=== PATIENT | male | born 1985 | race Caucasian/White ===

== ENCOUNTER 2017-07-07 10:21 | Emergency (ER) | payer SELFPAY ==
--- NOTE | 2017-07-07 10:58 | UC ---
Bite Injury/Animal HPI - HPI Summary HPI Summary: 31 year old male presents with rash on his right thigh, left swollen big toe, head ache and fever. - History of Current Complaint Stated Complaint: TICK BITE, RASH Time Seen by Provider: 07/07/17 10:57 Hx Obtained From: Patient Severity Currently: Severe Severity Initially: Severe Pain Scale Used: 0-10 Numeric - 8 Onset/Duration: Sudden Onset Type of Bite: Animal - tick - Allergies/Home Medications Allergies/Adverse Reactions: Allergies Allergy/AdvReac Type Severity Reaction Status Date / Time CATS Allergy sneezing,runny Uncoded 07/07/17 10:53 nose, watery, puffy eyes ENVIRONMENTAL/SEASONAL Allergy Sneezing, Uncoded 07/07/17 10:53 HAYFEVER RUNNY NOSE,EYES,PUFFY WATERY PMH/Surg Hx/FS Hx/Imm Hx Previously Healthy: Yes - Surgical History Surgical History: Yes Surgery Procedure, Year, and Place: RIGHT HAND NERVE REPAIR 2011, 2012 [facility] [place] Piutedylan Cole - Family History Known Family History: Positive: None - Social History Alcohol Use: Rare Substance Use Type: None Smoking Status (MU): Current Some Day Smoker Type: Cigarettes Amount Used/How Often: 4 CIGS PER WEEK Have You Smoked in the Last Year: Yes Review of Systems Constitutional: Negative Skin: Rash Eyes: Negative ENT: Negative Respiratory: Negative Cardiovascular: Negative Gastrointestinal: Negative Genitourinary: Negative Motor: Negative Neurovascular: Negative Musculoskeletal: Other: - left big toe swelling/pain Neurological: Negative Psychological: Negative All Other Systems Reviewed And Are Negative: Yes Physical Exam Triage Information Reviewed: Yes Appearance: Ill-Appearing Eye Exam: Normal ENT Exam: Normal Dental Exam: Normal Neck exam: Normal Neck: Positive: 1 Respiratory Exam: Normal Cardiovascular Exam: Normal Abdominal Exam: Normal Musculoskeletal Exam: Normal Musculoskeletal: Positive: Other: - left big toe swelling/pain Neurological Exam: Normal Psychological Exam: Normal Skin: Positive: rashes Bite Injury Course/Dx - Differential Dx/Diagnosis Provider Diagnoses: rash. left big toe swelling Discharge - Discharge Plan Condition: Stable Disposition: HOME Prescriptions: DOXYcycline CAP(*) [DOXYcycline 100MG CAP(*)] 100 mg PO BID #56 cap Patient Education Materials: Lyme Disease (ED), Tick Bite (ED) Referrals: Corrie Reinoso PA [Primary Care Provider] - If Needed
[2017-07-07 10:59] VITALS: BP 142/74
[2017-07-09 18:04] LABS: Lyme Disease IgG Ab WB Negative (Negative)
--- NOTE | 2017-07-10 07:17 | UC ---
Progress - Progress Note Progress Note: Please call patient to let them know that lyme titers is c/w early infection with lyme. pt is on 28 days of doxycycline. Pt should be re tested in 4-6 weeks to double check lyme titers as this test here suggests early infection but confirmation is needed.
== END 2017-07-07 11:24 | disposition home or self-care (01) ==
LOC: UCCORT 10:21
DX: R21 Rash and other nonspecific skin eruption (principal); M79.89 Other specified soft tissue disorders; R51 Headache; R50.9 Fever, unspecified; Z72.0 Tobacco use
CPT/HCPCS: 86617; 86618; 99212; G0463

== ENCOUNTER 2017-08-02 08:01 | Emergency (ER) | payer OTHER ==
[2017-08-02 08:11] VITALS: BP 138/85
--- NOTE | 2017-08-02 08:57 | UC ---
Knee Pain HPI - HPI Summary HPI Summary: 31 yo male with a 2 day hx of bilateral knee pain no injury he is three days shy of finishing a 3 week coarse of doxy for Lyme disease - History of Current Complaint Chief Complaint: UCLowerExtremity Stated Complaint: FOOT, KNEE PAIN Time Seen by Provider: 08/02/17 08:24 Hx Obtained From: Patient Onset/Duration: Gradual Onset, Lasting Days Severity Initially: Moderate Severity Currently: Moderate Pain Intensity: 4 Pain Scale Used: 0-10 Numeric Aggravating Factor(s): Movement, Weight Bearing Alleviating Factor(s): Rest Associated Signs And Symptoms: Positive: Negative Able to Bear Weight: Yes - Allergies/Home Medications Allergies/Adverse Reactions: Allergies Allergy/AdvReac Type Severity Reaction Status Date / Time CATS Allergy sneezing,runny Uncoded 08/02/17 08:11 nose, watery, puffy eyes ENVIRONMENTAL/SEASONAL Allergy Sneezing, Uncoded 08/02/17 08:11 HAYFEVER RUNNY NOSE,EYES,PUFFY WATERY PMH/Surg Hx/FS Hx/Imm Hx Previously Healthy: Yes - Lyme disease - Surgical History Surgical History: Yes Surgery Procedure, Year, and Place: RIGHT HAND NERVE REPAIR 2011, 2012 [facility] [place]y Cole - Family History Known Family History: Positive: Diabetes Negative: Cardiac Disease, Hypertension - Social History Alcohol Use: Occasionally Substance Use Type: None Smoking Status (MU): Heavy Every Day Tobacco Smoker Type: Cigarettes Amount Used/How Often: 1/2ppd Have You Smoked in the Last Year: Yes - Immunization History Most Recent Influenza Vaccination: no Review of Systems Constitutional: Negative Skin: Negative Eyes: Negative ENT: Negative Respiratory: Negative Cardiovascular: Negative Gastrointestinal: Negative Genitourinary: Negative Motor: Negative Neurovascular: Negative Musculoskeletal: Arthralgia Neurological: Negative Psychological: Negative All Other Systems Reviewed And Are Negative: Yes Physical Exam Triage Information Reviewed: Yes Appearance: Well-Appearing, No Pain Distress, Well-Nourished Vital Signs: Initial Vital Signs Temp 98.6 F 08/02/17 08:06 Pulse 80 08/02/17 08:06 Resp 16 08/02/17 08:06 BP 138/85 08/02/17 08:06 Pulse Ox 99 08/02/17 08:06 Eyes: Positive: Conjunctiva Clear ENT: Positive: Hearing grossly normal. Negative: Nasal congestion, Nasal drainage, Trismus, Muffled/hoarse voice Neck: Positive: Supple, Nontender, No Lymphadenopathy Respiratory: Positive: Lungs clear, Normal breath sounds, No respiratory distress, No accessory muscle use Cardiovascular: Positive: RRR, No Murmur Musculoskeletal: Positive: Strength Intact Neurological Exam: Normal Neurological: Positive: Alert Psychological Exam: Normal Skin Exam: Normal Knee Pain Course/Dx - Differential Dx/Diagnosis Provider Diagnoses: bilateral knee pain of uncertain cause Discharge - Discharge Plan Condition: Stable Disposition: HOME Prescriptions: Cefuroxime Axetil [Ceftin 250 MG] 250 mg PO BID #6 tab Patient Education Materials: Arthralgia (ED) Referrals: Corrie Reinoso PA [Primary Care Provider] - Additional Instructions: in case this is due to a reaction to doxy I suggest you stop it ceftin 250mg twice daily x 3 days if your joint pain doesn't improve by next week please get rechecked if you develop joint swelling/redness or fever get rechecked See ID doc later this month as planned
== END 2017-08-02 09:01 | disposition home or self-care (01) ==
LOC: UCCORT 08:01
DX: M25.562 Pain in left knee (principal); M25.561 Pain in right knee; Z79.2 Long term (current) use of antibiotics; A69.20 Lyme disease, unspecified; Z72.0 Tobacco use
CPT/HCPCS: 81003; 99212; G0463

== ENCOUNTER 2018-03-11 12:36 | Emergency (ER) | payer OTHER ==
[2018-03-11 13:53] VITALS: BP 157/95
--- NOTE | 2018-03-11 14:39 | UC ---
Abdominal Pain Male HPI - HPI Summary HPI Summary: 32 yo male has had intermittent lower abd pain and diarrhea x 1-1 1/2 mos averages about three episodes of diarrhea a day 2 weeks ago he states he thinks he saw a worm in his diarrhea past 1-2 days fever and chills anorexia nausea but no vomiting no dysuria no back pain no travel has 2 dogs at home had felt like something is "slipping in and out" of his anus no blood in stool now abd feels bloated - History of Current Complaint Chief Complaint: UCGU Stated Complaint: NAUSEA/STOMCH ACHE Time Seen by Provider: 03/11/18 14:22 Onset/Duration: Gradual Onset, Lasting Weeks Severity Initially: Mild Severity Currently: Moderate Pain Intensity: 2 - occassionally higher Pain Scale Used: 0-10 Numeric Location: Diffuse Character: Cramping Aggravating Factor(s): Nothing Associated Signs And Symptoms: Positive: Fever - since yesterday, Dizzy, Decreased Appetite - anorexic, Nausea, Diarrhea - around 3x day for weeks - Allergies/Home Medications Allergies/Adverse Reactions: Allergies Allergy/AdvReac Type Severity Reaction Status Date / Time CATS Allergy sneezing,runny Uncoded 03/11/18 13:45 nose, watery, puffy eyes ENVIRONMENTAL/SEASONAL Allergy Sneezing, Uncoded 03/11/18 13:45 HAYFEVER RUNNY NOSE,EYES,PUFFY WATERY Home Medications: Home Medications Albuterol HFA INHALER* [Ventolin HFA Inhaler*] 2 puff INH Q4HR PRN 03/11/18 [ History Confirmed 03/11/18] PMH/Surg Hx/FS Hx/Imm Hx Previously Healthy: Yes - Surgical History Surgical History: Yes Surgery Procedure, Year, and Place: RIGHT HAND NERVE REPAIR 2011, [place] [facility] [place]. Villanue[place] - Family History Known Family History: Positive: Diabetes Negative: Cardiac Disease, Hypertension - Social History Alcohol Use: None Substance Use Type: None Smoking Status (MU): Heavy Every Day Tobacco Smoker Type: Cigarettes Amount Used/How Often: 1/2ppd Have You Smoked in the Last Year: Yes - Immunization History Most Recent Influenza Vaccination: no Review of Systems Constitutional: Fever, Chills Skin: Negative Eyes: Negative ENT: Negative Respiratory: Negative Cardiovascular: Negative Gastrointestinal: Abdominal Pain, Diarrhea, Nausea Genitourinary: Negative Motor: Negative Neurovascular: Negative Musculoskeletal: Negative Neurological: Negative Psychological: Negative Is Patient Immunocompromised?: No All Other Systems Reviewed And Are Negative: Yes Physical Exam Triage Information Reviewed: Yes Appearance: Well-Appearing, No Pain Distress, Well-Nourished Vital Signs: Initial Vital Signs Temp 98.6 F 03/11/18 13:47 Pulse 86 03/11/18 13:47 Resp 18 03/11/18 13:47 BP 157/95 03/11/18 13:47 Pulse Ox 98 03/11/18 13:47 Vital Signs Reviewed: Yes Eyes: Positive: Conjunctiva Clear ENT: Positive: Hearing grossly normal, Pharyngeal erythema. Negative: Nasal congestion, Nasal drainage, Trismus, Muffled voice, Hoarse voice, Uvula midline Neck: Positive: Supple, Nontender, No Lymphadenopathy Respiratory: Positive: Lungs clear, Normal breath sounds, No respiratory distress, No accessory muscle use Cardiovascular: Positive: RRR, No Murmur Abdomen Description: Positive: No Organomegaly, Soft, Other: - most tender RLQ. Negative: Nontender, CVA Tenderness (R), CVA Tenderness (L), Distended, Guarding Bowel Sounds: Positive: Hyperactive Musculoskeletal: Positive: ROM Intact, No Edema Neurological: Positive: Alert Psychological Exam: Normal Skin Exam: Normal Abd Pain Male Course/Dx - Course Course Of Treatment: Due to current RLQ pain fever/anorexia/nausea I suggested he get seen in an ER for further investigation. Advised of wide differential for his current symptoms. - Differential Dx/Clinical Impression Provider Diagnoses: abdominal pain/fever/diarrhea of uncertain cause Discharge - Sign-Out/Discharge Documenting (check all that apply): Discharge - Discharge Plan Condition: Stable Disposition: HOME Referrals: Corrie Reinoso PA [Primary Care Provider] - Additional Instructions: As discussed I think you should go to the [facility] [place] for further investigation of you symptoms Because you are most tender in you RLQ abdomen and have fever and nausea/ anorexia I think you need to seen where you can have a higher level of care than we can offer. - Billing Disposition and Condition Condition: STABLE Disposition: HOME
== END 2018-03-11 14:46 | disposition home or self-care (01) ==
LOC: UCCORT 12:36
DX: R10.31 Right lower quadrant pain (principal); R50.9 Fever, unspecified; R63.0 Anorexia; R11.0 Nausea; R19.7 Diarrhea, unspecified; F17.210 Nicotine dependence, cigarettes, uncomplicated; Z91.09 Other allergy status, other than to drugs and biological substances
CPT/HCPCS: 99212; G0463

== ENCOUNTER 2018-03-11 15:28 | Emergency (ER) | payer OTHER ==
[2018-03-11 17:18] LABS: Hematocrit 49 % (42-52); Hemoglobin 17.8 g/dl (14.0-18.0); Mean Corpuscular HGB Conc 37 g/dl (31-36); Mean Corpuscular Hemoglobin 33 pg (27-31); Mean Corpuscular Volume 89 fL (80-94); Red Blood Count 5.45 10^6/ul (4.0-5.4); Red Cell Distribution Width 12 % (10.5-15); White Blood Count 10.2 10^3/ul (3.5-10.8)
[2018-03-11] MEDS ORDERED: NS 0.9% 1000 ML* 1,000 ML IV ONE (17:33)
[2018-03-11 17:38] LABS: EGFR Non-African American 84.6 (>60)
[2018-03-11] MEDS ORDERED: Iohexol 300* (CONTRAST) 10 ML SDV IV ONE (18:04)
[2018-03-11 18:11] LABS: ABS Basophils 0 10^3/ul (0-0.2); ABS Eosinophils 0.1 10^3/ul (0-0.6); ABS Lymphocytes 2.3 10^3/ul (1.0-4.8); ABS Monocytes 0.8 10^3/ul (0-0.8); ABS Neutrophils 7.1 10^3/ul (1.5-7.7); ABS Nucleated RBC 0.5 10^3/ul; Eosinophil % 0.5 % (0-6); Lymphocyte % 22.2 % (25-47); Mean Platelet Volume 8.6 um3 (7.4-10.4); Nucleated Red Blood Cells % 4.3; Platelet Count 238 10^3/ul (150-450)
--- NOTE | 2018-03-11 18:53 | ED ---
Abdominal Pain/Male - HPI Summary HPI Summary: C/O RUQ AND SUPRAPUBIC PAIN, NAUSEA, DIARRHEAS X 1 MONTH, "SOMETHING COMING IN AND OUT OF RECTUM" X 12 EPISODES, WITH FEVER, DEC APPETITE, IN LAST FEW DAYS. RUQ PAIN DESCRIBED INTERMITTENT, SHARTP, SOMETIMES ASSOCIATED WITH MEALS, LASTING UP TO 30 MINS. SUPRAPUBIC PAIN DESCRIBED OCCURRING EVERY MORNING. DENIES VOMITING, URINARY SX, PENILE D/C, TESTICLE PAIN OR SWELLING, HX OF HEMORRHOIDS, COUGH, SORE THROAT, CP, SOB,. MED HX = ASTHMA, GERD. AB/PEL SURGICAL HX = NONE. - History of Current Complaint Chief Complaint: EDAbdPain Stated Complaint: ABD PAIN Time Seen by Provider: 03/11/18 17:17 Hx Obtained From: Patient Onset/Duration: Gradual Onset, Lasting Weeks Timing: Intermittent, Lasting Minutes Severity Initially: Moderate Severity Currently: Moderate Pain Intensity: 4 Pain Scale Used: 0-10 Numeric Location: Discrete At: RUQ, Suprapubic Radiates: No Character: Sharp Aggravating Factor(s): Food Alleviating Factor(s): Nothing Associated Signs And Symptoms: Positive: Fever, Decreased Appetite, Nausea, Diarrhea. Negative: Blood in Stool, Urinary Symptoms, Vomiting, Penile Discharge - Risk Factors Testicular Torsion: Negative Cardiac Risk Factors: Negative - Allergies/Home Medications Allergies/Adverse Reactions: Allergies Allergy/AdvReac Type Severity Reaction Status Date / Time CATS Allergy sneezing,runny Uncoded 03/11/18 13:45 nose, watery, puffy eyes ENVIRONMENTAL/SEASONAL Allergy Sneezing, Uncoded 03/11/18 13:45 HAYFEVER RUNNY NOSE,EYES,PUFFY WATERY Home Medications: Home Medications Ashwagandha 1 cap PO DAILY 03/11/18 [History Confirmed 03/11/18] PMH/Surg Hx/FS Hx/Imm Hx Previously Healthy: Yes Endocrine/Hematology History: Denies: Hx Diabetes Cardiovascular History: Denies: Hx Hypertension Respiratory History: Reports: Hx Asthma GI History: Reports: Hx Gastroesophageal Reflux Disease - OK ON DAILY MED, Other GI Disorders - CURRENT PAIN ISSUE History: Denies: Hx Acute Renal Failure, Hx Benign Prostatic Hyperplasia, Hx Chronic Renal Failure, Hx Dialysis, Hx Kidney Infection, Hx Kidney Stones, Hx Renal Disease, Other Problems/Disorders Musculoskeletal History: Denies: Hx Arthritis, Hx Rheumatoid Arthritis, Hx Back Problems, Hx Bursitis , Hx Congenital Bone Abnormalities, Hx Fibromyalgia, Hx Gout, Hx Orthopedic Injury, Hx Osteoporosis, Hx Scoliosis, Hx Tendonitis, Hx of Fracture(s), Hx Joint Replacement, Other Musculoskeletal History Sensory History: Denies: Hx Contacts or Glasses, Hx Hearing Aid Opthamlomology History: Denies: Hx Contacts or Glasses - Surgical History Surgery Procedure, Year, and Place: RIGHT HAND NERVE REPAIR 2011, 2012 [facility] [place] Dr. Villanueva Hx Anesthesia Reactions: No Infectious Disease History: No Infectious Disease History: Reports: History Other Infectious Disease - lyme Denies: Traveled Outside the [place] in Last 30 Days - Family History Known Family History: Positive: Diabetes Negative: Cardiac Disease, Hypertension - Social History Alcohol Use: None Substance Use Type: Reports: None Smoking Status (MU): Heavy Every Day Tobacco Smoker Type: Cigarettes Amount Used/How Often: 1/2ppd Have You Smoked in the Last Year: Yes Review of Systems Positive: Fever, Chills Eyes: Negative ENT: Negative Cardiovascular: Negative Respiratory: Negative Positive: Abdominal Pain, Diarrhea, Nausea Genitourinary: Negative Musculoskeletal: Negative Skin: Negative Neurological: Negative Psychological: Normal All Other Systems Reviewed And Are Negative: Yes Physical Exam Triage Information Reviewed: Yes Vital Signs On Initial Exam: Initial Vitals Temp Pulse Resp BP Pulse Ox 97.7 F 92 18 162/88 99 03/11/18 15:29 03/11/18 15:29 03/11/18 15:29 03/11/18 15:29 03/11/18 15:29 Vital Signs Reviewed: Yes Appearance: Positive: Well-Appearing Skin: Positive: Warm Head/Face: Positive: Normal Head/Face Inspection Eyes: Positive: Normal ENT: Positive: Normal ENT inspection Neck: Positive: Supple Respiratory/Lung Sounds: Positive: Clear to Auscultation Cardiovascular: Positive: Normal Abdomen Description: Positive: Soft, McBurney's Point Tenderness, Other: - heme neg. NEG FOR HEMORRHOIDS OR MASS ON KIYA. RLQ TENDERNESS ON EXAM. NEG MURPHYS.. Negative: Nontender, Distended, Guarding, Peritoneal Signs Bowel Sounds: Positive: Present Musculoskeletal: Positive: Normal Neurological: Positive: Normal Psychiatric: Positive: Normal AVPU Assessment: Alert - Shamika Coma Scale Best Eye Response: 4 - Spontaneous Best Motor Response: 6 - Obeys Commands Best Verbal Response: 5 - Oriented Coma Scale Total: 15 Diagnostics - Vital Signs Vital Signs Temp Pulse Resp BP Pulse Ox 03/11/18 17:25 80 14 179/101 97 03/11/18 17:22 7 03/11/18 16:49 98.9 F 80 20 153/67 98 03/11/18 15:29 97.7 F 92 18 162/88 99 - Laboratory Lab Results: Lab Results 03/11/18 03/11/18 03/11/18 Range/Units 17:05 17:05 17:05 WBC 10.2 (3.5-10.8) 10^3/ul RBC 5.45 H (4.0-5.4) 10^6/ul Hgb 17.8 (14.0-18.0) g/dl Hct 49 (42-52) % MCV 89 (80-94) fL MCH 33 H (27-31) pg MCHC 37 H (31-36) g/dl RDW 12 (10.5-15) % Plt Count 238 (150-450) 10^3/ul MPV 8.6 (7.4-10.4) um3 Neut % (Auto) 69.2 (38-83) % Lymph % (Auto) 22.2 L (25-47) % [place] % (Auto) 7.7 H (0-7) % Eos % (Auto) 0.5 (0-6) % Baso % (Auto) 0.4 (0-2) % Absolute Neuts (auto) 7.1 (1.5-7.7) 10^3/ul Absolute Lymphs (auto) 2.3 (1.0-4.8) 10^3/ul Absolute Monos (auto) 0.8 (0-0.8) 10^3/ul Absolute Eos (auto) 0.1 (0-0.6) 10^3/ul Absolute Basos (auto) 0 (0-0.2) 10^3/ul Absolute Nucleated RBC 0.5 10^3/ul Nucleated RBC % 4.3 Giant Platelets Present Sodium 138 L (139-145) mmol/L Potassium 3.9 (3.5-5.0) mmol/L Chloride 105 (101-111) mmol/L Carbon Dioxide 24 (22-32) mmol/L Anion Gap 9 (2-11) mmol/L BUN 11 (6-24) mg/dL Creatinine 1.02 (0.67-1.17) mg/dL Est GFR ( Amer) 108.9 (>60) Est GFR (Non-Af Amer) 84.6 (>60) BUN/Creatinine Ratio 10.8 (8-20) Glucose 101 H (70-100) mg/dL Lactic Acid 0.6 (0.5-2.0) mmol/L Calcium 9.5 (8.6-10.3) mg/dL Total Bilirubin 1.50 H (0.2-1.0) mg/dL AST 40 H (13-39) U/L ALT 49 (7-52) U/L Alkaline Phosphatase 77 (34-104) U/L C-Reactive Protein < 1.00 (< 5.00) mg/L Total Protein 7.6 (6.4-8.9) g/dL Albumin 4.6 (3.2-5.2) g/dL Globulin 3.0 (2-4) g/dL Albumin/Globulin Ratio 1.5 (1-3) Lipase 14 (11.0-82.0) U/L Result Diagrams: 03/11/18 17:05 03/11/18 17:05 Lab Statement: Any lab studies that have been ordered have been reviewed, and results considered in the medical decision making process. - CT ab/pel CT Interpretation: Positive (See Comments) - colitis Re-Evaluation - Re-Evaluation First Eval Re-Evaluation Time: 20:04 - PT REFDUSED PAIN MEDS HERE AND RX. Second Eval Re-Evaluation Time: 20:50 - no purulent drainage from I+D. Abdominal Pain Fem Course/Dx - Diagnoses Differential Diagnosis/HQI/PQRI: Appendicitis, Diverticulitis, Gall Bladder Disease, Pancreatitis Provider Diagnoses: Colitis - Provider Notifications Admit/Transition Orders Completed By ED Provider: No Discharge - Sign-Out/Discharge Documenting (check all that apply): Discharge - HOME - Discharge Plan Condition: Stable Disposition: HOME Prescriptions: Ciprofloxacin HCl [Cipro] 500 mg PO BID #14 tablet metroNIDAZOLE [Flagyl] 500 mg PO TID 7 Days #21 tablet Promethazine TAB* [Phenergan TAB*] 25 mg PO Q8H PRN #20 tab PRN Reason: Nausea Referrals: Corrie Reinoso PA [Primary Care Provider] - Additional Instructions: RETURN TO ED FOR ANY NEW OR WORSENING SYMPTOMS. - Billing Disposition and Condition Condition: STABLE Disposition: HOME
--- NOTE | 2018-03-11 19:46 | RAD ---
INDICATION: Right lower quadrant pain and fever. COMPARISON: Correlation is made with a prior CT of the abdomen and pelvis from March 01, 2014. TECHNIQUE: A CT scan of the abdomen and pelvis was performed with intravenous and oral contrast following intravenous injection of 131 ml of Omnipaque 300 nonionic contrast. Contiguous axial sections were obtained from the lung bases through the symphysis pubis. Images were reconstructed in the coronal and sagittal planes. FINDINGS: The lung bases are clear. No pleural effusion is present. The liver and spleen are normal in size. The liver is decreased in attenuation consistent with fatty infiltration which is unchanged. No significant focal hepatic abnormality is seen. No calcified gallstones are noted. The pancreas appears to be within normal limits. The kidneys and adrenal glands are normal in size. No hydronephrosis is seen. No significant focal renal abnormality is seen. The aorta is normal in caliber and demonstrates homogeneous contrast opacification. No significant enlarged retroperitoneal lymph nodes are seen. The stomach, small and large bowel appear nondistended. The appendix is within normal limits. There is mild thickening of the wall of the sigmoid colon consistent with upper limits of normal variation versus mild colitis. There is no evidence for diverticulitis. No free intraperitoneal air or fluid is seen. No significant focal osseous abnormality is seen. IMPRESSION: 1. MILD THICKENING OF THE WALL OF THE SIGMOID COLON CONSISTENT WITH COLITIS VERSUS UPPER LIMITS OF NORMAL VARIATION. 2. HEPATIC STEATOSIS.
[2018-03-11] MEDS ORDERED: metroNIDAZOLE TAB* 250 MG PO ONE (20:40)
[2018-03-11] MEDS ORDERED: Ciprofloxacin TAB* 500 MG PO ONE (20:40)
[2018-03-11 20:53] VITALS: BP 162/85
== END 2018-03-11 20:50 | disposition home or self-care (01) ==
LOC: ED 15:28
DX: K52.9 Noninfective gastroenteritis and colitis, unspecified (principal); R10.9 Unspecified abdominal pain; R50.9 Fever, unspecified; R11.0 Nausea; R19.7 Diarrhea, unspecified; F17.210 Nicotine dependence, cigarettes, uncomplicated
CPT/HCPCS: 36415; 74177; 80053; 82272; 83605; 83690; 85025; 86140; 96360; 99284; A9270-GY; Q9967

== ENCOUNTER 2019-01-01 07:40 | Emergency (ER) | payer OTHER ==
[2019-01-01] MEDS ORDERED: Albuterol 2.5 MG/3 ML NEB.SOL* (0.083%) INH ONE (07:49)
[2019-01-01 07:58] VITALS: BP 181/95
[2019-01-01] MEDS ORDERED: predniSONE TAB* 20 MG PO ONE (08:17)
--- NOTE | 2019-01-01 08:22 | UC ---
General HPI - HPI Summary HPI Summary: States he has a hx of asthma, felt like he was coming down with something and was at work and was exposed to black mold on 12/29. Cough and congestion worsened over the past few days. Hasn't been able to sleep. Took 4 melatonin and it did help. Productive cough and SOB. +Chills and sweats. Unsure if he had a fever. Has been using an albuterol inhaler frequently without the spacer (has spacer but is not using it) it does help. Meds: reviewed - History of Current Complaint Chief Complaint: UCRespiratory Stated Complaint: COUGH,CONGESTION Time Seen by Provider: 01/01/19 07:49 Pain Intensity: 0 - Allergy/Home Medications Allergies/Adverse Reactions: Allergies Allergy/AdvReac Type Severity Reaction Status Date / Time CATS Allergy sneezing,runny Uncoded 01/01/19 07:49 nose, watery, puffy eyes ENVIRONMENTAL/SEASONAL Allergy Sneezing, Uncoded 01/01/19 07:49 HAYFEVER RUNNY NOSE,EYES,PUFFY WATERY Home Medications: Home Medications Omeprazole 40 mg PO ONCE PRN 01/01/19 [History Confirmed 01/01/19] PMH/Surg Hx/FS Hx/Imm Hx Previously Healthy: No Respiratory History: Asthma - Surgical History Surgical History: Yes Surgery Procedure, Year, and Place: RIGHT HAND NERVE REPAIR 2011, 2012 [facility] [place] Dr. Villanueva - Family History Known Family History: Positive: Diabetes Negative: Cardiac Disease, Hypertension - Social History Alcohol Use: None Substance Use Type: None Smoking Status (MU): Former Smoker Type: Cigarettes Amount Used/How Often: 1/2ppd Have You Smoked in the Last Year: Yes When Did the Patient Quit Smoking/Using Tobacco: 08/06/18 - Immunization History Most Recent Influenza Vaccination: no Review of Systems All Other Systems Reviewed And Are Negative: Yes Constitutional: Positive: Fever, Chills Respiratory: Positive: Shortness Of Breath, Cough Physical Exam Triage Information Reviewed: Yes Appearance: Other: - mildly ill appearing Vital Signs: Initial Vital Signs Temp 97.7 F 01/01/19 07:51 Pulse 114 01/01/19 07:51 Resp 22 01/01/19 07:51 BP 181/95 01/01/19 07:51 Pulse Ox 97 01/01/19 07:51 Vital Signs Reviewed: Yes ENT: Positive: Pharyngeal erythema, Nasal congestion, TMs normal Neck exam: Normal Neck: Positive: Supple Respiratory: Positive: Other: - diminished breath sounds, expiratory wheezing more pronounced on left, persistent cough Cardiovascular: Positive: No Murmur, Other: - tachycardic Diagnostics - Radiology CXR Radiology Interpretation Completed By: Radiologist Summary of Radiographic Findings: No acute cardiopulmonary finding Course/Dx - Course Course Of Treatment: This is a 33 yr old with PMHx of asthma recently exposed to black mold. Assessment. CXR: negative. Asthma exacerbation secondary to viral illness and environmental exposure. ALbuterol neb and Prednisone 40 mg given. Plan. Continue inhaler with spacer and/or nebulizer every 4 hours while sick, then switch to as needed. Start tomorrow medrol dose pack as directed. Tessalon tabs as needed. If symptoms persist or worsen, return to urgent care or ER - Diagnoses Provider Diagnosis: Asthma exacerbation Discharge - Sign-Out/Discharge Documenting (check all that apply): Patient Departure All imaging exams completed and their final reports reviewed: Yes - Discharge Plan Condition: Fair Disposition: HOME Prescriptions: Albuterol 2.5MG/3ML (0.083%)* [Ventolin 2.5 MG/3 ML NEB.BONG*] 2.5 mg INH Q4H #1 packet Benzonatate CAP* [Tessalon 100 MG CAP*] 200 mg PO TID PRN #60 cap PRN Reason: Cough methylPREDNISolone [Medrol Dosepak 4 MG*] 0 mg PO .SEE ERICA INSTRUCTION #1 tab Patient Education Materials: Asthma (ED) Referrals: Corrie Reinoso PA [Primary Care Provider] - Additional Instructions: Continue inhaler with spacer and/or nebulizer every 4 hours while sick, then switch to as needed Start tomorrow medrol dose pack as directed Tessalon tabs as needed If symptoms persist or worsen, return to urgent care or ER - Billing Disposition and Condition Condition: FAIR Disposition: Home
== END 2019-01-01 09:21 | disposition home or self-care (01) ==
LOC: UCCORT 07:40
DX: J45.901 Unspecified asthma with (acute) exacerbation (principal); Z91.09 Other allergy status, other than to drugs and biological substances; Z87.891 Personal history of nicotine dependence
CPT/HCPCS: 71046; 99212; G0463; J7512

== ENCOUNTER 2019-04-13 10:10 | Emergency (ER) | payer OTHER ==
[2019-04-13 10:30] VITALS: BP 139/73
[2019-04-13] MEDS ORDERED: Tetan/Diph/Pertus SYR(Tdap)* 0.5 ML SYR(BOOSTRIX) use SYR IM ONE (10:59)
--- NOTE | 2019-04-13 11:20 | ED ---
Upper Extremity Pain - HPI Summary HPI Summary: 33 yr old male with the complaint of cut his right index finger on a hook knife. He complains of numbness over the right lateral index finger tip. He does not know his last tetanus shot. He has injured his prior right pinky finger. - History of Current Complaint Chief Complaint: UCGeneralIllness Stated Complaint: RIGHT INDEX FINGER LACERATION W/C Time Seen by Provider: 04/13/19 10:53 - Allergies/Home Medications Allergies/Adverse Reactions: Allergies Allergy/AdvReac Type Severity Reaction Status Date / Time CATS Allergy sneezing,runny Uncoded 04/13/19 10:31 nose, watery, puffy eyes ENVIRONMENTAL/SEASONAL Allergy Sneezing, Uncoded 04/13/19 10:31 HAYFEVER RUNNY NOSE,EYES,PUFFY WATERY PMH/Surg Hx/FS Hx/Imm Hx Endocrine/Hematology History: Denies: Hx Diabetes Cardiovascular History: Denies: Hx Hypertension Respiratory History: Reports: Hx Asthma GI History: Reports: Hx Gastroesophageal Reflux Disease - OK ON DAILY MED, Other GI Disorders - CURRENT PAIN ISSUE History: Denies: Hx Acute Renal Failure, Hx Benign Prostatic Hyperplasia, Hx Chronic Renal Failure, Hx Dialysis, Hx Kidney Infection, Hx Kidney Stones, Hx Renal Disease, Other Problems/Disorders Musculoskeletal History: Denies: Hx Arthritis, Hx Rheumatoid Arthritis, Hx Back Problems, Hx Bursitis , Hx Congenital Bone Abnormalities, Hx Fibromyalgia, Hx Gout, Hx Orthopedic Injury, Hx Osteoporosis, Hx Scoliosis, Hx Tendonitis, Other Musculoskeletal History Sensory History: Denies: Hx Contacts or Glasses, Hx Hearing Aid Opthamlomology History: Denies: Hx Contacts or Glasses - Surgical History Surgery Procedure, Year, and Place: RIGHT HAND NERVE REPAIR 2011, 2012 [facility] [place] Villanueva Hx Anesthesia Reactions: No Infectious Disease History: No Infectious Disease History: Reports: History Other Infectious Disease - lyme Denies: Traveled Outside the [place] in Last 30 Days - Family History Known Family History: Positive: Diabetes Negative: Cardiac Disease, Hypertension - Social History Occupation: Employed Full-time Alcohol Use: Occasionally Substance Use Type: Reports: None Smoking Status (MU): Former Smoker Type: Cigarettes Amount Used/How Often: 1/2ppd Have You Smoked in the Last Year: Yes Review of Systems Constitutional: Negative Positive: Other - right index finger cut with numbness. All Other Systems Reviewed And Are Negative: Yes Physical Exam Triage Information Reviewed: Yes Vital Signs On Initial Exam: Initial Vitals Temp Pulse Resp BP Pulse Ox 97.2 F 89 18 139/73 97 04/13/19 10:26 04/13/19 10:26 04/13/19 10:26 04/13/19 10:04/13/19 10:26 Vital Signs Reviewed: Yes Appearance: Positive: Well-Appearing, No Pain Distress Skin: Positive: Warm, Skin Color Reflects Adequate Perfusion, Other - right index finger has cut over the lateral distal phalynx area that is a well approximated skin flap. No active bleeding Head/Face: Positive: Normal Head/Face Inspection Eyes: Positive: EOMI ENT: Positive: Normal ENT inspection Neck: Positive: Nontender Respiratory/Lung Sounds: Positive: Clear to Auscultation, Breath Sounds Present Cardiovascular: Positive: Pulses are Symmetrical in both Upper and Lower Extremities Musculoskeletal: Positive: Other - right pinky finger with contractur from prior injury. Right index finger with cut over the lateral distal phalynx. There is decreased sensation distal lateral tip. Neurological: Positive: Alert, Oriented to Person Place, Time, CN Intact II-III Procedures - Splinting Right 2nd Digit Location: right index finger. premade foam metal splint Pre-Made Type: metal Splint: volar Pre-Proc Neuro Vasc Exam: normal Post-Proc Neuro Vasc Exam: normal Diagnostics - Vital Signs Vital Signs Temp Pulse Resp BP Pulse Ox 04/13/19 10:26 97.2 F 89 18 139/73 97 - Laboratory Lab Statement: Any lab studies that have been ordered have been reviewed, and results considered in the medical decision making process. - Radiology right index finger Radiology Interpretation Completed By: Radiologist - NAD Course/Dx - Course Course Of Treatment: 33 yr old male with finger laceration right index finger and digital nerve injury. His finger was cleaned and antibiotic ointment and dressing applied. A foam metal splint was applied as well by me. He knows he needs to follow up with ortho hand specialist. He has seen the hand surgeon in the [facility] in the past for 5th digit reattachement. His laceration is a skin flap that is well approximated and already closed. - Diagnoses Provider Diagnoses: Injury of digital nerve of right index finger, Laceration Discharge - Sign-Out/Discharge Documenting (check all that apply): Patient Departure All imaging exams completed and their final reports reviewed: No Studies - Discharge Plan Condition: Good Disposition: HOME Patient Education Materials: Finger Laceration (ED) Forms: *Work Release Referrals: Corrie Reinoso PA [Primary Care Provider] - Kang Mathias MD [Medical Doctor] - 1 Day Padma Meyers MD [Medical Doctor] - 1 Day Edi Abraham MD [Medical Doctor] - 1 Day Additional Instructions: You have a nerve injury to your right index finger. Be sure you follow up with the hand surgeon for further evaluation and treatment. Do not delay. - Billing Disposition and Condition Condition: GOOD Disposition: Home
== END 2019-04-13 12:18 | disposition home or self-care (01) ==
LOC: UCCORT 10:10
DX: S64.490A Injury of digital nerve of right index finger, initial encounter (principal); S61.210A Laceration without foreign body of right index finger without damage to nail, initial encounter; J45.909 Unspecified asthma, uncomplicated; Z91.09 Other allergy status, other than to drugs and biological substances; Z87.891 Personal history of nicotine dependence; W26.0XXA Contact with knife, initial encounter; W45.8XXA Other foreign body or object entering through skin, initial encounter; Y92.9 Unspecified place or not applicable
CPT/HCPCS: 73140; 90471; 90715; 99211; G0463